=== PATIENT | female | born 1990 ===

== ENCOUNTER 2020-05-24 12:26 | Inpatient (IN) | payer BC ==
[2020-05-24] VITALS (14 sets, daily range): BP systolic 109–1111; BP diastolic 56–81; PULSE 67–96; TEMP 97.9
[~2020-05-24] VITALS: Ht 162.7 cm; Wt 101.8 kg
--- NOTE | 2020-05-24 19:05 | NUR ---
190- Pt. ambulatory to the unit with by her side. Orientated to room and changed into clean gown. Pt. reports GFM, denies LOF, blood and reports occasional contractions. 1912- EFM and TOCO on and tracing intermittently, RN remains in room and readjust accordingly as needed. Vitals taken, assessment completed, consents signed. Discussed plan for the evening and answered questions.
[2020-05-24] MEDS ORDERED: OSCAL 500 TAB500 MG (19:24)
[2020-05-24] MEDS ORDERED: PRENATAL TABLET PO (19:26)
[2020-05-24] MEDS ORDERED: NIFEREX TABLET1 EACH PO (19:26)
[2020-05-24] MEDS ORDERED: PRILOTC (19:27)
[2020-05-24 20:28] LABS: BASO % 0.1 % (0.0-2.0); EOS # 0.1 (0.0-0.7); EOS % 0.5 % (0-4.0); GRAN # 7.8 (1.4-6.5); HEMOGLOBIN 11.3 g/dl (12.5-16.0); LYMPH # 2.3 (1.2-3.4); LYMPH % 21.3 % (20.0-51.0); MEAN CELL VOLUME 84 fl (80.0-100.0); MEAN CORPUSCULAR HEMOGLOBIN 29 pg (27.0-31.0); MEAN CORPUSCULAR HGB CONC 34 g/dl (33.0-37.0); MEAN PLATELET VOLUME 11.1 fl (7.4-10.4); MONO # 0.7 (0.1-0.6); MONO % 6.7 % (1.7-9.3); PLATELET COUNT 225 K/mm3 (130-400); RED BLOOD COUNT 3.95 M/mm3 (4.10-5.30); REDCELL DISTRIBUTION WIDTH-CV 13.7 % (11.5-14.5)
[2020-05-24 20:33] LABS: HEMATOCRIT 33.3 % (37.0-47.0)
[2020-05-25] VITALS (93 sets, daily range): BP systolic 85–194; BP diastolic 51–100; PULSE 54–99; TEMP 97.4–98
--- NOTE | 2020-05-25 08:31 | NUR ---
Dr. Fox on unit. Update given that pitocin at 16mu/ml/hr. Having trouble tracing contractions as pt is sound asleep on right side. Contractions had been every 2-5 minutes but have now spaced out. FHR strip reviewed. Orders to continue increasing pitocin up to 30mu/ml/hr. Physician will return around noon hour to check pt and progress.
--- NOTE | 2020-05-25 12:37 | NUR ---
[id number] - Difficulty tracing contractions despite multiple toco adjustments. RN at bedside palpaiting contractions, contractions every 2-4 minutes lasting approximately 60-90 seconds. Abdominal wrap removed and toco secured with elastic belt. Contractions tracing better. FHR remains WNL with good accelerations and variability.
--- NOTE | 2020-05-25 14:44 | NUR ---
1330 - Pt sitting up at bedside in position for epidural. Difficulty tracing contractions at this time. FHR WNL with moderate variability. RN remains at bedside with pt, holding on FHR monitor. 1400 - Pt repositioned for comfort after epidural insertion. Contractions tracing at this time. 1417 - Roles to pt bedside. SVE per provider /-3. AROM at this time, clear fluid noted. IUPC placed at 1421 for more accurate tracing of contractions.
--- NOTE | 2020-05-25 15:11 | NUR ---
[id number] - Late decels noted following contractions, decreasing 10-15 bpm and returning to baseline by 30 seconds. Roles on unit and monitoring FHR and contraction pattern.
--- NOTE | 2020-05-25 19:00 | NUR ---
[id number] MVUs calculated 285
--- NOTE | 2020-05-25 20:10 | NUR ---
[id number] MVUs calculated 195
--- NOTE | 2020-05-25 21:00 | NUR ---
[id number] MVUs calculated 245
--- NOTE | 2020-05-25 21:30 | NUR ---
2129- SVE by this RN . Spoke with Dr. Fox for an update on pt's status. FHR tracing reviewed. 2147- Dr. Fox at the bedside. Options for continued induction or reviewed. Pt and requesting time to discuss. 2156- decision. Pitocin turned off. 2204- IUPC removed without complications. 2207- Pt off EFM for transfer to OR.
[2020-05-26] VITALS (11 sets, daily range): BP systolic 90–160; BP diastolic 50–131; PULSE 55–76; TEMP 97.7–98
[2020-05-26 07:54] LABS: HEMOGLOBIN 10.5 g/dl (12.5-16.0); MEAN CELL VOLUME 85 fl (80.0-100.0); MEAN CORPUSCULAR HEMOGLOBIN 29 pg (27.0-31.0); MEAN CORPUSCULAR HGB CONC 34 g/dl (33.0-37.0); MEAN PLATELET VOLUME 11.7 fl (7.4-10.4); PLATELET COUNT 197 K/mm3 (130-400); RED BLOOD COUNT 3.66 M/mm3 (4.10-5.30); REDCELL DISTRIBUTION WIDTH-CV 13.5 % (11.5-14.5)
[2020-05-26 07:57] LABS: HEMATOCRIT 31.1 % (37.0-47.0)
[2020-05-26 08:24] LABS: BAND 16 % (0-10); LYMPHOCYTE 6 % (20.0-51.0); NEUTROPHILS 73 % (42.0-75.2); PLATELET ESTIMATE NORMAL (NORMAL)
[2020-05-26] MEDS ORDERED: IBU600 MG PO (09:13)
[2020-05-26] MEDS ORDERED: PERCOCET 325 MG1 TA2 PO (09:14)
--- NOTE | 2020-05-26 09:14 | NUR ---
Initial visit attempt; Patient resting, Slide Attendant left card with information concerning the availability of spiritual care at our hospital and offering God's blessings.
[2020-05-27 09:00] VITALS: BP 127/72; PULSE 72; TEMP 97.8
[2020-05-27 17:04] VITALS: BP 127/79; PULSE 78; TEMP 97.8
[2020-05-27 20:45] VITALS: BP 111/77; PULSE 76; TEMP 98.1
[2020-05-28 07:20] VITALS: BP 122/75; PULSE 67; TEMP 98.2
--- NOTE | 2020-05-28 08:12 | NUR ---
PT ASLEEP, REPORT RECEIVED FROM OFF GOING [facility]NL[facility] CARE TAKEN OVER BY THIS RN.
== END 2020-05-28 14:50 | disposition home or self-care (01) | DRG 788 ==
LOC: OB → LDR 19:01 → OB 05-26 00:54
PROVIDERS: ADMIT Obstetrics & Gynecology
PROC: 10D00Z1 Extraction of Products of Conception, Low, Open Approach (ICD-10-PCS; principal; 2020-05-25)
PROC: 10907ZC Drainage of Amniotic Fluid, Therapeutic from Products of Conception, Via Natural or Artificial Opening (ICD-10-PCS; 2020-05-25)
PROC: 3E0P7VZ Introduction of Hormone into Female Reproductive, Via Natural or Artificial Opening (ICD-10-PCS; 2020-05-25)
PROC: 3E033VJ Introduction of Other Hormone into Peripheral Vein, Percutaneous Approach (ICD-10-PCS; 2020-05-25)
PROC: 10H07YZ Insertion of Other Device into Products of Conception, Via Natural or Artificial Opening (ICD-10-PCS; 2020-05-25)
DX: O14.04 Mild to moderate pre-eclampsia, complicating childbirth (principal); O36.5930 Maternal care for other known or suspected poor fetal growth, third trimester, not applicable or unspecified; Z3A.39 39 weeks gestation of pregnancy; Z37.0 Single live birth; O62.1 Secondary uterine inertia; O99.214 Obesity complicating childbirth
CPT/HCPCS: J0690; J1100; J1885; J2590; J3010; J7120